=== PATIENT | male | born 1960 | race Hispanic/Latino ===

== ENCOUNTER 2018-09-25 11:29 | Emergency (ER) | payer OTHER ==
[2018-09-25 11:35] VITALS: BP 145/79
--- NOTE | 2018-09-25 11:36 | Event Note ---
ED Screening Note Date of service: 09/25/18 Time: 11:33 ED Screening Note: This is a 58 y.o. M. that presents to the ER with headache, neck pain radiating to RUE. Reports intermittent spasms down RUE. Former smoker Applying heat and taking NSAIDs w/minimal improvement. This initial assessment/diagnostic orders/clinical plan/treatment(s) is/are subject to change based on patients health status, clinical progression and re- assessment by fellow clinical providers in the ED. Further treatment and workup at subsequent clinical providers discretion. Patient/guardian urged not to elope from the ED as their condition may be serious if not clinically assessed and managed. Initial orders include: XR c-spine
[2018-09-25] MEDS ORDERED: IBUPROFEN PO ONE (12:00)
[2018-09-25] MEDS ORDERED: NORCO 5/325 PO ONE (12:00)
[2018-09-25] MEDS ORDERED: DECADRON IM ONE (12:09)
[2018-09-25] MEDS ORDERED: PERCOCET 5/325 PO ONE (12:13)
--- NOTE | 2018-09-25 12:29 | Emergency Department Report ---
ED Back Pain/Injury HPI - General Chief Complaint: Headache Stated Complaint: HEAD/NECK/BACK PAIN Time Seen by Provider: 09/25/18 11:33 Source: patient Limitations: No Limitations - History of Present Illness MD Complaint: back pain (patient is complaining of pain at the lower C-spine region down through the area just right of the upper thoracic spine and left of the scapula) -: Gradual, week(s) (1) Place: home, work Radiation: other (right arm) Severity: severe Severity scale (0 -10): 8 Quality: sharp Consistency: constant Worsens With: movement Context: while lifting Associated Symptoms: nausea/vomiting. denies: confusion, weakness, chest pain, numbness, difficulty walking, cough, diaphoresis, incontinence, fever/chills, constipation, headaches, abdominal pain, rash, seizure, shortness of breath - Related Data Previous Rx's Medication Instructions Recorded Last Taken Type Ibuprofen [Motrin 800 MG tab] 800 mg PO Q8HR PRN #10 tablet 09/25/18 Unknown Rx methOCARBAMOL [Robaxin TAB] 500 mg PO Q6H PRN #14 tablet 09/25/18 Unknown Rx oxyCODONE /ACETAMINOPHEN [Percocet 1 tab PO Q6HR PRN #12 tablet 09/25/18 Unknown Rx 5/325] Allergies Allergy/AdvReac Type Severity Reaction Status Date / Time No Known Allergies Allergy Unverified 09/25/18 11:33 ED Review of Systems ROS: Stated complaint: HEAD/NECK/BACK PAIN Other details as noted in HPI Comment: All other systems reviewed and negative ED Back Pain Physical Exam - Exam General: Vital signs noted. No distress. Alert and acting appropriately. Back/Abdomen: Yes Perithoracic Tenderness, No Abdominal Tenderness, No Perilumbar Tenderness, No Sacroiliac Tenderness, No Flank Tenderness, No Straight Leg Raise Pain Neuro: Yes Normal Sensation, Yes Normal DTR's, Yes Normal Gait, No Motor Weakness ED Course Vital Signs 09/25/18 11:33 Temperature 97.9 F Pulse Rate 74 Respiratory 18 Rate Blood Pressure 145/79 O2 Sat by Pulse 97 Oximetry ED Medical Decision Making - Medical Decision Making Patient given medications for muscle spasm and patient also given a shot of Decadron to help with radiculopathy. Patient discharged home with follow-up with Dr. Ware. Critical care attestation.: If time is entered above; I have spent that time in minutes in the direct care of this critically ill patient, excluding procedure time. ED Disposition Clinical Impression: Acute cervical radiculopathy Disposition: DC-01 TO HOME OR SELFCARE Is pt being admited?: No Does the pt Need Aspirin: No Condition: Stable Instructions: Cervical Radiculopathy (ED) Referrals: NELL WARE MD [Staff Physician] - 3-5 Days Time of Disposition: 12:29
== END 2018-09-25 12:57 | disposition home or self-care (01) ==
LOC: ED 11:29
DX: M54.12 Radiculopathy, cervical region (principal); Z79.899 Other long term (current) drug therapy
CPT/HCPCS: 96372; 99282; J1100